=== PATIENT | male | born 1995 | race Caucasian/White ===

== ENCOUNTER 2022-08-09 15:51 | Emergency (ER) | payer OTHER, SELFPAY ==
[2022-08-09 16:11] VITALS: BP 107/61; BP 120/68; PULSE 96; RESP 18; TEMP 36.6; O2SAT 92; O2SAT 98; BMI 30.7
--- NOTE | 2022-08-09 16:13 | ED.SOB ---
HPI - SOB/Dyspnea General Chief Complaint: Dyspnea Stated Complaint: SOB Time Seen by Provider: 08/09/22 16:13 Source: patient Mode of arrival: EMS Limitations: no limitations History of Present Illness HPI Narrative: Patient history of asthma was admitted to ICU intubated 2 years ago get sick often being short of breath for last few days getting worse does not have any medicine left EMS gave him DuoNeb and Solu-Cortef feeling much better now saturating 90% room air patient does have dry cough no running nose no sinus pain no fever or chills MD elicited complaint: shortness of breath Related Data Previous Rx's Medication Instructions Recorded albuterol sulfate 2.5 mg/3 mL 2.5 mg (3 mL) inhalation Q4-6H PRN 08/09/22 (0.083 %) solution for nebulization shortness of breath or wheezing #90 mL albuterol sulfate 90 mcg/actuation 2 puff inhalation Q4-6H PRN 08/09/22 aerosol inhaler (ProAir HFA) shortness of breath or wheezing #8.5 grams prednisone 20 mg tablet 40 mg PO DAILY #10 tabs 08/09/22 Allergies Allergy/AdvReac Type Severity Reaction Status Date / Time No Known Allergies Allergy Verified 08/09/22 16:18 Review of Systems Review of Systems: Yes all other systems are reviewed and are negative [facility] Social History Social History Advance Directives: No Advance Directives Information Provided: No Physical Exam Vital Signs: Vital Signs: Last Vital Signs Temp 97.8 F 08/09/22 16:11 Pulse 77 08/09/22 18:00 Resp 16 08/09/22 18:00 BP 107/61 08/09/22 16:19 Pulse Ox 94 08/09/22 16:19 O2 Del Method 08/09/22 16:19 BMI result Body Mass Index 30.7 Appearance: Alert. Oriented X3. No acute distress. Eyes: No pallor/ icterus ENT: Pharynx normal. Oral Mucosa moist Neck: Normal inspection. Neck supple. CVS: Normal heart rate and rhythm. Pulses normal. Respiratory: Mild respiratory distress. Equal air entry bilateral, bilateral wheezing and rhonchi Abdomen: Soft and nontender. Bowel sounds are present, no mass palpable, no CVA tenderness Skin: Skin warm and dry. Normal skin color. Normal skin turgor. Extremities: No lower extremity edema. No calf tenderness Neuro: Oriented X 3. No motor deficit. Medications Administered Discontinued Medications Generic Name Dose Route Start Last Admin Trade Name Sneha PRN Reason Stop Dose Admin Albuterol Sulfate 5 mg/ 7.5 mg 08/09/22 16:18 08/09/22 16:30 Albuterol Sulfate 2.5 mg INHALE 08/09/22 16:19 7.5 mg ONCE ONE Administration Albuterol Sulfate 5 mg/ 7.5 mg 08/09/22 17:55 08/09/22 18:00 Albuterol Sulfate 2.5 mg INHALE 08/09/22 17:56 7.5 mg ONCE ONE Administration Sodium Chloride 1,000 mls @ 999 mls/hr 08/09/22 16:18 08/09/22 16:25 Ns IV 08/09/22 17:18 999 mls/hr .Q1H1M ONE Administration MDM - SOB/Dyspnea MDM Narrative Medical decision making narrative: 630 pm Patient has severe asthma received 2 continuous 7.5 mg treatment in the ER along with DuoNeb by the EMS magnesium and Solu-Medrol feeling much better now saturating 96% at room air will discharge patient home on prednisone and albuterol treatment patient refused labs and x-ray COVID is negative Differential Diagnosis Differential diagnosis: Likely asthma with exacerbation Lab Data Attestation: I reviewed the patient's lab results. Labs: Lab Results 08/09/22 Range/Units 16:51 COVID-19 ([facility]) Negative (Negative) COVID-19 Clin Com See Note Critical Care Time Critical Care Time Critical Care Time: Yes Total Critical Care Time: 35 Attestation: The patient was critically ill with a high probability of imminent or life threatening deterioration. I spent greater than 40 minutes of discontinuous time evaluating the patient,delivering critical care at the bedside, discussing and evaluating pertinent data with consultants. Critical care time does not include time spent performing separately billable procedures or teaching. Total time spent performing critical care was 35 minutes. Discharge Plan Discharge Clinical Impression: Asthma with exacerbation Patient Disposition: Home, Self-Care Instructions: Asthma (ED) Additional Instructions: Use nebulizing treatment every 4-6 hours as needed Prednisone as prescribed Follow with PCP if not better Prescriptions: New prednisone 20 mg tablet 40 mg PO DAILY Qty: 10 0RF albuterol sulfate [ProAir HFA] 90 mcg/actuation HFA aerosol inhaler 2 puff inhalation Q4-6H PRN (Reason: shortness of breath or wheezing) Qty: 8.5 0RF albuterol sulfate 2.5 mg /3 mL (0.083 %) solution for nebulization 2.5 mg inhalation Q4-6H PRN (Reason: shortness of breath or wheezing) Qty: 90 0RF Stand Alone Forms: Work/School Release
[2022-08-09 16:19] VITALS: BP 107/61; PULSE 96; RESP 20; O2SAT 94
[2022-08-09] MEDS: 0.9 % Sodium Chloride 1,000 ML 999 ML IV (16:25)
[2022-08-09 16:30] VITALS: PULSE 88; RESP 18; O2SAT 98
[2022-08-09] MEDS: Albuterol Sulfate 5 MG, Albuterol Sulfate (0.083%) 2.5 MG 7.5 MG INHALE ×2 (16:30→18:00)
[2022-08-09 17:15] LABS: COVID-19 Test Negative (Negative); IDNOW Serial# BCCEAD1C
[2022-08-09 18:00] VITALS: PULSE 77; RESP 16
== END 2022-08-09 19:06 | disposition home or self-care (01) ==
PROVIDERS: Emergency Provider Internal Medicine
DX: J45.901 Unspecified asthma with (acute) exacerbation (principal); R06.02 Shortness of breath; Z20.822 Contact with and (suspected) exposure to COVID-19; Z79.899 Other long term (current) drug therapy
CPT/HCPCS: 87635; 94640; 99284

== ENCOUNTER 2022-08-16 03:10 | Emergency (ER) | payer OTHER, SELFPAY ==
--- NOTE | ~2022-08-16 | XR_ITS ---
EXAMINATION: XR CHEST CLINICAL INFORMATION: Short of breath COMPARISON: None TECHNIQUE: Frontal view of the chest was obtained. FINDINGS: The lungs are well expanded. There is no focal consolidation, edema, or effusion. No pneumothorax. The cardiomediastinal silhouette is within normal limits. No acute osseous abnormality. XR/XR chest 1V IMPRESSION: Clear lungs.
[2022-08-16 03:14] VITALS: BP 142/96; BP 149/81; PULSE 120; RESP 24; O2SAT 96; O2SAT 97; BMI 31.8
--- NOTE | 2022-08-16 03:16 | ECG_ITS ---
Test Reason : ASTHMA Blood Pressure : / mmHG Vent. Rate : 125 BPM Atrial Rate : 125 BPM P-R Int : 148 ms QRS Dur : 078 ms QT Int : 316 ms P-R-T Axes : 059 113 067 degrees QTc Int : 456 ms Sinus tachycardia Right axis deviation Nonspecific ST abnormality Abnormal ECG No previous ECGs available Referred By: Dorina Han Electronically Signed By:MERRICK NEFF MD
--- NOTE | 2022-08-16 03:18 | ED.ASTHMA ---
HPI - Asthma General Chief Complaint: Asthma Stated Complaint: SOB Time Seen by Provider: 08/16/22 03:11 Source: patient and EMS Mode of arrival: EMS Limitations: no limitations History of Present Illness HPI Narrative: Patient comes to the emergency room complaining of 3-4 hours of severe shortness of breath. Patient has used multiple times his inhaler without any relief. Per EMS, oxygen saturation on their arrival to the patient's residence was in the high 80s but his breath sounds were concerning for severe asthma. Patient has history of intubations due to asthma exacerbations. EMS was unable to get a line, on arrival to the ED, patient refusing to get an IV line. Related Data Previous Rx's Medication Instructions Recorded albuterol sulfate 2.5 mg/3 mL 2.5 mg (3 mL) inhalation Q4-6H PRN 08/09/22 (0.083 %) solution for nebulization shortness of breath or wheezing #90 mL albuterol sulfate 90 mcg/actuation 2 puff inhalation Q4-6H PRN 08/09/22 aerosol inhaler (ProAir HFA) shortness of breath or wheezing #8.5 grams prednisone 20 mg tablet 40 mg PO DAILY #10 tabs 08/09/22 albuterol sulfate 2.5 mg/0.5 mL 5 mg inhalation Q4H #30 ea 08/16/22 solution for nebulization albuterol sulfate 90 mcg/actuation 2 puff inhalation Q4-6H PRN 08/16/22 aerosol inhaler shortness of breath or wheezing #8.5 grams prednisone 50 mg tablet 50 mg PO DAILY #5 tabs 08/16/22 Allergies Allergy/AdvReac Type Severity Reaction Status Date / Time No Known Allergies Allergy Verified 08/09/22 16:18 Review of Systems Review of Systems: Constitutional : No Weight loss, No Fever, No Chills, No Night Sweats, No Fatigue, No Malaise ENT/Mouth : No Hearing loss, No Ear Pain, No Nasal Congestion, No Sinus Pain, No Hoarseness, No sore throat, No Rhinorrhea, No Swallowing Difficulty Eyes: No Eye Pain, No Swelling, No Redness, No Foreign Body, No Discharge, No Vision Changes Cardiovascular : No Chest Pain, No SOB, No Dyspnea on Exertion, No Orthopnea, No Edema, No Palpitations Respiratory : Patient complaining of shortness of breath Gastrointestinal : No Nausea, No Vomiting, No Diarrhea, No Constipation, No abdominal Pain, No Hematochezia, No Melena Genitourinary : no irregular bleeding, No Dysuria, No Urinary Frequency, No Hematuria, No Urinary Incontinence, No Urgency, No Flank Pain, No Urinary Flow Changes, No Hesitancy Musculoskeletal : No joint pain, No Myalgias, No Joint Swelling Skin : No Skin Lesions, No rash Neuro : No Weakness, No Numbness, No Paresthesias, No Loss of Consciousness, No Dizziness, No Headache Psych : No Anxiety/Panic, No Depression, No SI/HI/AH/VH, No Social Issues, Heme/Lymph: No Bruising, No Bleeding,No Lymphadenopathy Endocrine : No Polyuria, No Polydipsia, No Temperature Intolerance PMFSH Past Medical History Medical History Severe asthma Social History Social History Advance Directives: No Physical Exam Vital Signs: Vital Signs: Last Vital Signs Pulse 120 H 08/16/22 04:20 Resp 22 H 08/16/22 03:24 BP 149/81 H 08/16/22 03:14 Pulse Ox 97 08/16/22 03:14 O2 Del Method 08/16/22 03:14 Oxygen Flow Rate 6 08/16/22 03:14 BMI result Body Mass Index 31.8 Const: Other: Appearance: Alert. Oriented X3. Eyes: Pupils equal, round and reactive to light. ENT: Pharynx normal. Neck: Normal inspection. Neck supple. No lymph nodes noted. No crepitus CVS: Tachycardic, regular rhythm. Pulses normal. Normal S1 and S2 Respiratory: Mother respiratory distress, speaking 1-2 words at a time, diffuse wheezing, decreased air movement Abdomen: Soft and nontender. No rigidity. No distention. Skin: Skin warm, mildly diaphoretic Extremities: No lower extremity edema. No Lacerations. No Rash Neuro: Oriented X 3. No motor deficit. No sensory deficit. Moving all extremities. No slurred speech. CN 2 through 12 grossly intact Psych: calm, cooperative, normal affect Course Course Course Narrative: Patient already received IM Solu-Cortef and nebulization treatments per EMS. On arrival, patient declining an IV line, states that he needs to relax before allowing the nurses to place an IV line. After an hour long treatment, patient continues wheezing. Oxygen saturation in the mid 90s. Patient will be receiving another hour long treatment. Patient states that he is not willing to stay in the hospital. Chest x-rays negative for pneumonia. Patient's white blood cell count is slightly elevated, prior to arrival to the hospital, patient received steroids IM. Patient still feels short of breath, oxygen saturation 92% on room air, still significantly wheezing. I discussed with the patient that he should be staying for further treatment. Patient agreeable. I discussed the patient with Dr. Moyer, pt being admitted 05:39 patient states that he wants to go home and be discharged. Patient will be leaving against medical advice. Patient is aware that he is at risk of Medications Administered Discontinued Medications Generic Name Dose Route Start Last Admin Trade Name Freq PRN Reason Stop Dose Admin Albuterol Sulfate 7.5 mg/ 10 mg 08/16/22 03:15 08/16/22 03:20 Albuterol Sulfate 2.5 mg INHALE 08/16/22 03:16 10 mg ONCE ONE Administration Albuterol Sulfate 10 mg 08/16/22 03:56 08/16/22 04:04 Albuterol Sulfate (0.083%) 2.5 Mg/3 Ml Vial.Neb INHALE 08/16/22 03:57 10 mg ONCE ONE Administration Magnesium Sulfate 2 gm in 50 mls @ 25 mls/hr 08/16/22 03:15 08/16/22 05:31 Magnesium Sulfate/H2o IV 08/16/22 05:14 Infused ONCE ONE Infusion Methylprednisolone Sodium Succinate 125 mg 08/16/22 03:15 08/16/22 03:29 Methylprednisolone Sod Succ 125 Mg/2 Ml Vial IVPUSH 08/16/22 03:16 125 mg ONCE ONE Administration MDM - Asthma Lab Data Result diagrams: 08/16/22 03:25 08/16/22 03:25 Labs: Lab Results 08/16/22 08/16/22 08/16/22 Range/Units 03:25 03:25 03:25 WBC 11.7 H (4.8-10.8) X10*3/uL RBC 5.27 (4.60-5.80) X10*6/uL Hgb 15.5 (14.0-18.0) g/dl Hct 44.9 (42.0-52.0) % MCV 85.2 (80.0-98.0) fL MCH 29.4 (27.0-33.0) pg MCHC 34.5 (31.0-36.0) g/dl RDW 13.3 (11.0-16.0) % Plt Count 199 (160-400) X10*3/uL MPV 11.9 (9.4-12.4) fL Immature Gran % (Auto) 0.3 (0.0-0.4) % Neut % (Auto) 58.8 (45-73) % Lymph % (Auto) 29.6 (20-40) % [place] % (Auto) 6.7 (2-11) % Eos % (Auto) 3.9 (0-4) % Baso % (Auto) 0.7 (0-2) % Lymph # (Auto) 3.5 (1.2-4.9) X10*3/uL [place] # (Auto) 0.8 (0.1-1.2) X10*3/uL Eos # (Auto) 0.5 H (0.0-0.4) X10*3/uL Baso # (Auto) 0.1 (0.0-0.2) X10*3/uL Abs Immat Gran (auto) 0.04 H (0.00-0.03) X10*3/uL Absolute Neuts (auto) 6.9 (2.0-8.3) x10*3/uL Absolute Nucleated RBC 0.000 (0.0-0.012) X10*3/uL Nucleated RBC % (auto) 0.0 (0.0-0.2) /100WBC Sodium 141 (135-145) mmol/L Potassium 3.7 (3.3-5.1) mmol/L Chloride 105 (96-108) mmol/L Carbon Dioxide 26 (22-29) mmol/L Anion Gap 14 (12-20) BUN 20 H (9-16) mg/dL Creatinine 0.99 (0.5-1.4) mg/dL Estim Creat Clear Calc 108.6 Estimated GFR > 60 Random Glucose 136 H (60-115) mg/dL Lactic Acid 1.8 (0.5-2.0) mmol/L Calcium 9.3 (8.4-10.2) mg/dL COVID-19 ([facility]) (Negative) COVID-19 Clin Com 08/16/22 Range/Units 03:25 WBC (4.8-10.8) X10*3/uL RBC (4.60-5.80) X10*6/uL Hgb (14.0-18.0) g/dl Hct (42.0-52.0) % MCV (80.0-98.0) fL MCH (27.0-33.0) pg MCHC (31.0-36.0) g/dl RDW (11.0-16.0) % Plt Count (160-400) X10*3/uL MPV (9.4-12.4) fL Immature Gran % (Auto) (0.0-0.4) % Neut % (Auto) (45-73) % Lymph % (Auto) (20-40) % [place] % (Auto) (2-11) % Eos % (Auto) (0-4) % Baso % (Auto) (0-2) % Lymph # (Auto) (1.2-4.9) X10*3/uL [place] # (Auto) (0.1-1.2) X10*3/uL Eos # (Auto) (0.0-0.4) X10*3/uL Baso # (Auto) (0.0-0.2) X10*3/uL Abs Immat Gran (auto) (0.00-0.03) X10*3/uL Absolute Neuts (auto) (2.0-8.3) x10*3/uL Absolute Nucleated RBC (0.0-0.012) X10*3/uL Nucleated RBC % (auto) (0.0-0.2) /100WBC Sodium (135-145) mmol/L Potassium (3.3-5.1) mmol/L Chloride (96-108) mmol/L Carbon Dioxide (22-29) mmol/L Anion Gap (12-20) BUN (9-16) mg/dL Creatinine (0.5-1.4) mg/dL Estim Creat Clear Calc Estimated GFR Random Glucose (60-115) mg/dL Lactic Acid (0.5-2.0) mmol/L Calcium (8.4-10.2) mg/dL COVID-19 ([facility]) Negative (Negative) COVID-19 Clin Com See Note Imaging Data Chest x-ray: Radiologist's impression: FINDINGS: The lungs are well expanded. There is no focal consolidation, edema, or effusion. No pneumothorax. The cardiomediastinal silhouette is within normal limits. No acute osseous abnormality. XR/XR chest 1V IMPRESSION: Clear lungs. Critical Care Time Critical Care Time Critical Care Time: Yes Total Critical Care Time: 60 Attestation: I have personally provided critical care time. Time includes review of lab data, radiology results, discussion with consultants, and monitoring for potential decompensation. Intervention performed as documented. Discharge Plan Discharge Clinical Impression: Asthma with acute exacerbation Patient Disposition: Left Against Medical Advice Instructions: Bronchospasm (ED) Additional Instructions: Please follow-up with your primary care physician tomorrow. If you have any worsening or new symptoms, please return to the emergency room or call 911 Prescriptions: New prednisone 50 mg tablet 50 mg PO DAILY Qty: 5 0RF albuterol sulfate 90 mcg/actuation HFA aerosol inhaler 2 puff inhalation Q4-6H PRN (Reason: shortness of breath or wheezing) Qty: 8.5 1RF albuterol sulfate 2.5 mg/0.5 mL solution for nebulization 5 mg inhalation Q4H Qty: 30 0RF No Action prednisone 20 mg tablet 40 mg PO DAILY Qty: 10 0RF albuterol sulfate [ProAir HFA] 90 mcg/actuation HFA aerosol inhaler 2 puff inhalation Q4-6H PRN (Reason: shortness of breath or wheezing) Qty: 8.5 0RF albuterol sulfate 2.5 mg /3 mL (0.083 %) solution for nebulization 2.5 mg inhalation Q4-6H PRN (Reason: shortness of breath or wheezing) Qty: 90 0RF
--- NOTE | 2022-08-16 03:18 | PC.NURSE ---
pt refusing iv at this time. pt teaching on the need for iv to give medications. pt states he will flip out and needs time. provider made aware.
[2022-08-16] MEDS: Albuterol Sulfate 7.5 MG, Albuterol Sulfate (0.083%) 2.5 MG 10 MG INHALE (03:20)
[2022-08-16 03:24] VITALS: PULSE 120; RESP 22; O2SAT 98
[2022-08-16] MEDS: Magnesium Sulfate/H2O 2 GM/50 ML PIGGYBACK IV (03:29)
[2022-08-16] MEDS: methylPREDNISolone Sod Succ 125 MG/2 ML VIAL IVPUSH (03:29)
[2022-08-16 03:35] LABS: Basophils Absolute Auto 0.1 X10*3/uL (0.0-0.2); Basophils Percent Auto 0.7 % (0-2); Eosinophils Absolute Auto 0.5 X10*3/uL (0.0-0.4); Eosinophils Percent Auto 3.9 % (0-4); Hematocrit 44.9 % (42.0-52.0); Hemoglobin 15.5 g/dl (14.0-18.0); Imm Gran Abs Auto 0.04 X10*3/uL (0.00-0.03); Imm Gran Pct Auto 0.3 % (0.0-0.4); Lymphocytes Absolute Auto 3.5 X10*3/uL (1.2-4.9); Lymphocytes Percent Auto 29.6 % (20-40); MANUAL DIFF FLAG NO; Mean Corpuscular HGB Conc 34.5 g/dl (31.0-36.0); Mean Corpuscular Hemoglobin 29.4 pg (27.0-33.0); Mean Corpuscular Volume 85.2 fL (80.0-98.0); Mean Platelet Volume 11.9 fL (9.4-12.4); Monocytes Absolute Auto 0.8 X10*3/uL (0.1-1.2); Monocytes Percent Auto 6.7 % (2-11); Neutrophils Absolute Auto 6.9 x10*3/uL (2.0-8.3); Neutrophils Percent Auto 58.8 % (45-73); Platelet Count 199 X10*3/uL (160-400); Red Blood Count 5.27 X10*6/uL (4.60-5.80); Red Cell Distribution Width 13.3 % (11.0-16.0); White Blood Count 11.7 X10*3/uL (4.8-10.8)
[2022-08-16 03:44] LABS: Lactic Acid 1.8 mmol/L (0.5-2.0)
[2022-08-16 03:47] LABS: COVID-19 Test Negative (Negative)
[2022-08-16 03:51] LABS: Anion Gap 14 (12-20); Blood Urea Nitrogen 20 mg/dL (9-16); Calcium 9.3 mg/dL (8.4-10.2); Carbon Dioxide 26 mmol/L (22-29); Chloride 105 mmol/L (96-108); Creatinine Clr Calc Pharmacy 108.6; Estimated Glomerular Filt Rate > 60; Glucose Random 136 mg/dL (60-115); Potassium 3.7 mmol/L (3.3-5.1); Sodium 141 mmol/L (135-145)
[2022-08-16] MEDS: Albuterol Sulfate (0.083%) 2.5 MG/3 ML VIAL.NEB 10 MG INHALE (04:04)
[2022-08-16 04:20] VITALS: PULSE 120
--- NOTE | 2022-08-16 05:20 | PC.NURSE ---
patient ambulated to the bathroom with strong steady gait. SPO2 dipped to the high 80s on room air. placed on 2L nasal cannula.
[2022-08-16 05:40] VITALS: BP 123/78; PULSE 110; RESP 18; TEMP 36.7; O2SAT 97
--- NOTE | 2022-08-16 07:25 | PHA.MEDREC ---
Pharmacy Consult ? Medication Reconciliation Pharmacy has completed the medication reconciliation. Patient discharged before med rec could be done.
== END 2022-08-16 09:14 | disposition left against medical advice (07) ==
PROVIDERS: Emergency Provider Emergency Medicine
DX: J45.901 Unspecified asthma with (acute) exacerbation (principal); R06.02 Shortness of breath; Z20.822 Contact with and (suspected) exposure to COVID-19; Z79.899 Other long term (current) drug therapy
CPT/HCPCS: 71045; 80048; 83605; 85025; 87040; 87635; 93005; 94640; 96365; 96374; 96375; 99284; 99285; J2930; J3475

== ENCOUNTER 2022-08-24 03:30 | Emergency (ER) | payer OTHER, SELFPAY ==
[2022-08-24] MEDS: Albuterol/Iprat 2.5/0.5MG 3 ML AMPUL.NEB 1.5 ML INHALE (04:16)
[2022-08-24] MEDS: dexAMETHasone 2 MG TABLET 10 MG PO (04:16)
[2022-08-24] MEDS: Magnesium Sulfate/H2O 2 GM/50 ML PIGGYBACK IV (04:50)
[2022-08-24] MEDS: Midazolam HCl/PF 2 MG/2 ML VIAL 1 MG IVPUSH (04:50)
[2022-08-24] MEDS: methylPREDNISolone Sod Succ 125 MG/2 ML VIAL IVPUSH (04:50)
[2022-08-24] MEDS: Albuterol Sulfate 5 MG, Albuterol/Iprat 2.5/0.5MG 3 ML 3 ML INHALE (05:00)
[2022-08-24] MEDS: 0.9 % Sodium Chloride 1,000 ML 999 ML IV (05:23)
[2022-08-24 06:48] VITALS: BP 120/67; PULSE 111; RESP 19; TEMP 36.8; O2SAT 100
--- NOTE | 2022-08-24 07:27 | ED.SOB ---
HPI - SOB/Dyspnea General Time Seen by Provider: 08/24/22 04:00 Source: patient Mode of arrival: ambulatory Limitations: no limitations History of Present Illness HPI Narrative: Patient smoker with history of asthma came for increased shortness of breath since yesterday evening got worse just prior to arrival patient took multiple nebulizing on it and inhaler without much response patient is saturating 94% on room air was very anxious tachycardic with heart rate of 121 with bilateral wheezing patient was given DuoNeb treatment on arrival and Decadron p.o. as he refused IV if Related Data Previous Rx's Medication Instructions Recorded albuterol sulfate 2.5 mg/3 mL 2.5 mg (3 mL) inhalation Q4-6H PRN 08/09/22 (0.083 %) solution for nebulization shortness of breath or wheezing #90 mL albuterol sulfate 90 mcg/actuation 2 puff inhalation Q4-6H PRN 08/09/22 aerosol inhaler (ProAir HFA) shortness of breath or wheezing #8.5 grams prednisone 20 mg tablet 40 mg PO DAILY #10 tabs 08/09/22 albuterol sulfate 2.5 mg/0.5 mL 5 mg inhalation Q4H #30 ea 08/16/22 solution for nebulization albuterol sulfate 90 mcg/actuation 2 puff inhalation Q4-6H PRN 08/16/22 aerosol inhaler shortness of breath or wheezing #8.5 grams prednisone 50 mg tablet 50 mg PO DAILY #5 tabs 08/16/22 albuterol sulfate 2.5 mg/3 mL 2.5 mg (3 mL) inhalation Q4-6H PRN 08/24/22 (0.083 %) solution for nebulization shortness of breath or wheezing #90 mL albuterol sulfate 90 mcg/actuation 2 puff inhalation Q4-6H PRN 08/24/22 aerosol inhaler (ProAir HFA) shortness of breath or wheezing #8.5 grams prednisone 20 mg tablet 40 mg PO DAILY #10 tabs 08/24/22 Allergies Allergy/AdvReac Type Severity Reaction Status Date / Time No Known Allergies Allergy Verified 08/09/22 16:18 Review of Systems Review of Systems: Yes all other systems are reviewed and are negative PMFSH Past Medical History Medical History Severe asthma Social History Social History Advance Directives: No Advance Directives Information Provided: Yes Physical Exam Vital Signs: Vital Signs: Last Vital Signs Temp 98.3 F 08/24/22 06:48 Pulse 100 08/24/22 08:31 Resp 20 08/24/22 08:31 BP 110/70 08/24/22 08:31 Pulse Ox 93 08/24/22 08:31 O2 Del Method 08/24/22 08:31 O2 Flow Rate 10 08/24/22 06:48 Appearance: Alert. Oriented X3. Moderate respiratory distress Eyes: PERRLA, No Nystagmus ENT: Pharynx normal. Oral Mucosa moist Neck: Normal inspection. Neck supple. CVS: Normal heart rate and rhythm. Pulses normal. Respiratory: No respiratory distress. Equal air entry bilateral, bilateral wheezing Abdomen: Soft and nontender. Bowel sounds are present, no mass palpable, no CVA tenderness Skin: Skin warm and dry. Normal skin color. Normal skin turgor. Extremities: No lower extremity edema. No calf tenderness Neuro: Oriented X 3. No motor deficit. No sensory deficit.No cerebellar signs , cranial nerves II-XII intact Medications Administered Discontinued Medications Generic Name Dose Route Start Last Admin Trade Name Eliazarq PRN Reason Stop Dose Admin Albuterol Sulfate 5 mg/ 7.5 mg 08/24/22 07:28 08/24/22 08:28 Albuterol Sulfate 2.5 mg INHALE 08/24/22 07:29 7.5 mg ONCE ONE Administration Albuterol/Ipratropium 1.5 ml 08/24/22 06:59 08/24/22 04:16 Albuterol/Iprat 2.5/0.5mg 3 Ml Ampul.Neb INHALE 08/24/22 07:00 1.5 ml ONCE ONE Administration Albuterol Sulfate 5 mg/ 0 mg 08/24/22 06:58 08/24/22 05:00 Albuterol/Ipratropium 3 ml INHALE 08/24/22 06:59 5 each ONCE ONE Administration Dexamethasone 10 mg 08/24/22 06:58 08/24/22 04:16 Dexamethasone 2 Mg Tablet PO 08/24/22 06:59 10 mg ONCE ONE Administration Sodium Chloride 1,000 mls @ 999 mls/hr 08/24/22 07:00 08/24/22 08:01 Ns IV 08/24/22 08:00 Infused .Q1H1M MILLY Infusion Magnesium Sulfate 2 gm in 50 mls @ 25 mls/hr 08/24/22 07:00 08/24/22 07:09 Magnesium Sulfate/H2o IV 08/24/22 08:59 Infused ONCE ONE Infusion Methylprednisolone Sodium Succinate 125 mg 08/24/22 07:00 08/24/22 04:50 Methylprednisolone Sod Succ 125 Mg/2 Ml Vial IVPUSH 08/24/22 07:01 125 mg ONCE ONE Administration Midazolam HCl 1 mg 08/24/22 07:00 08/24/22 04:50 Midazolam Hcl/Pf 2 Mg/2 Ml Vial IVPUSH 08/24/22 07:01 1 mg ONCE ONE Administration MDM - SOB/Dyspnea MDM Narrative Medical decision making narrative: Patient with status asthmaticus was very anxious when he went to the bathroom IV line started patient was given IV magnesium and continue his nebulized treatment patient is still wheezing saturating 91% at room air will give another continuous nebulizing treatment ECG Data Attestation: I personally reviewed and interpreted this ECG as follows: Interpretation: Sinus tachycardia heart rate 110 beats per minute normal interval right axis deviation no acute distention no acute ischemia Discharge Plan Discharge Clinical Impression: Asthma exacerbation Patient Disposition: Home, Self-Care Instructions: Asthma (ED) Additional Instructions: Use inhaler and nebulizing treatment as advised Prednisone as prescribed Follow-up with PCP if not better Prescriptions: New prednisone 20 mg tablet 40 mg PO DAILY Qty: 10 0RF albuterol sulfate [ProAir HFA] 90 mcg/actuation HFA aerosol inhaler 2 puff inhalation Q4-6H PRN (Reason: shortness of breath or wheezing) Qty: 8.5 0RF albuterol sulfate 2.5 mg /3 mL (0.083 %) solution for nebulization 2.5 mg inhalation Q4-6H PRN (Reason: shortness of breath or wheezing) Qty: 90 2RF No Action prednisone 20 mg tablet 40 mg PO DAILY Qty: 10 0RF albuterol sulfate [ProAir HFA] 90 mcg/actuation HFA aerosol inhaler 2 puff inhalation Q4-6H PRN (Reason: shortness of breath or wheezing) Qty: 8.5 0RF albuterol sulfate 2.5 mg /3 mL (0.083 %) solution for nebulization 2.5 mg inhalation Q4-6H PRN (Reason: shortness of breath or wheezing) Qty: 90 0RF prednisone 50 mg tablet 50 mg PO DAILY Qty: 5 0RF albuterol sulfate 90 mcg/actuation HFA aerosol inhaler 2 puff inhalation Q4-6H PRN (Reason: shortness of breath or wheezing) Qty: 8.5 1RF albuterol sulfate 2.5 mg/0.5 mL solution for nebulization 5 mg inhalation Q4H Qty: 30 0RF Interventions: ED Discharge Assessment Last Done: 08/24/22 08:33 Discharge Date/Time: 08/24/22 08:34
--- NOTE | 2022-08-24 07:38 | ECG_ITS ---
Test Reason : SOB Blood Pressure : / mmHG Vent. Rate : 110 BPM Atrial Rate : 110 BPM P-R Int : 136 ms QRS Dur : 078 ms QT Int : 320 ms P-R-T Axes : 055 110 068 degrees QTc Int : 433 ms Sinus tachycardia Right axis deviation Abnormal ECG No previous ECGs available Referred By: Sami Posey Electronically Signed By:Gonzalez Soto
[2022-08-24] MEDS: Albuterol Sulfate 5 MG, Albuterol Sulfate (0.083%) 2.5 MG 7.5 MG INHALE (08:28)
[2022-08-24 08:29] VITALS: PULSE 100; RESP 16; O2SAT 95
[2022-08-24 08:31] VITALS: BP 110/70; PULSE 100; RESP 20; O2SAT 93
== END 2022-08-24 08:34 | disposition home or self-care (01) ==
PROVIDERS: Emergency Provider Internal Medicine
DX: J45.901 Unspecified asthma with (acute) exacerbation (principal); R06.02 Shortness of breath; F17.200 Nicotine dependence, unspecified, uncomplicated
CPT/HCPCS: 93005; 94640; 96365; 96366; 96375; 99283; 99285; J2250; J2930; J3475; J8540

== ENCOUNTER 2023-01-17 18:22 | Emergency (ER) | payer OTHER, SELFPAY ==
[2023-01-17 18:31] VITALS: BP 108/63; PULSE 112; RESP 20; TEMP 36.3; O2SAT 97; O2SAT 99; BMI 29.2
--- NOTE | 2023-01-17 19:53 | PC.NURSE ---
patient reports that he is feeling much better now after having the breathing tx by EMS. states that his ride is here and he wants to leave. patient alert and oriented, skin pwd, resp even and non labored, speaking in full, clear sentences, ambulating w/ steady gait. patient aware of reasons to return to ED.
== END 2023-01-17 19:56 | disposition left against medical advice (07) ==
PROVIDERS: Emergency Provider Emergency Medicine
DX: R06.00 Dyspnea, unspecified (principal)
CPT/HCPCS: 99281